=== PATIENT | female | born 1990 | race Caucasian/White ===

== ENCOUNTER → 2016-10-19 | Outpatient (CLI) | payer OTHER ==
--- NOTE | 2016-10-19 08:13 | US ---
EXAMINATION TYPE: US thyroid st tissue head/neck DATE OF EXAM: 10/19/2016 8:01 AM COMPARISON: NONE CLINICAL HISTORY: R22.0 Thyroid Swelling. Pt states feeling lump right side of neck x 3 years GLAND SIZE: Right Lobe: 4.2 x 1.4 x 2.0 cm Overall Parenchyma: homogenous Left Lobe: 4.1 x 1.1 x 1.7 cm Overall Parenchyma: homogeneous Isthmus Thickness: 0.2 cm NODULES RIGHT: # of nodules measured on right: 0 LEFT: # of nodules measured on left: 0 ISTHMUS: # of nodules measured in the isthmus: 0 Bilateral neck scanned, at area of pt's lump right superior neck there appears to be a probable lymph node= 2.23 x 0.5 x 0.5 cm/ Other smaller lymph nodes within neck 4mm and 6mm in size/ Thyroid appear s wnl IMPRESSION: 1. Normal-appearing thyroid gland. 2. Mildly prominent lymph node. Consider CT neck follow-up in the nodule persists.
== END | disposition home or self-care (01) ==
LOC: RADUSWWP 07:35
PROVIDERS: ATTEND Internal Medicine
DX: R22.0 Localized swelling, mass and lump, head (principal)
CPT/HCPCS: 76536

== ENCOUNTER → 2016-10-30 | Outpatient (CLI) | payer OTHER ==
--- NOTE | 2016-10-30 09:23 | CT ---
EXAMINATION TYPE: CT soft tissue neck w con DATE OF EXAM: 10/30/2016 8:42 AM COMPARISON: Correlation ultrasound thyroid 10/19/2016 HISTORY: 26-year-old female with right sided mass on neck TECHNIQUE: Contiguous axial scanning of the neck performed with IV Contrast, patient injected with 10 0 ml mL of Omnipaque 300. Coronal/sagittal reconstructions performed. CT DLP: 686 mGycm Automated exposure control for dose reduction was used. FINDINGS: Mild mucosal thickening bilateral maxillary sinuses with a polyp or mucosal retention cyst along the floor of the left maxillary sinus. Mastoid air cells well pneumatized. Visualized orbits and globes a nd intracranial structures show no gross abnormality. The nasopharynx is clear. There is mild prominence to the palatine tonsils, left greater than right. Additional mild prominence to the lingual tonsils. Oropharynx otherwise clear. The epiglottis and pre vertebral soft tissues are within normal limits. Glottic and subglottic structures as well as the tra cheal column and visualized upper lungs are clear. Bovine configuration to the aortic arch with normal variant direct takeoff of the left vertebral liliana ry directly from the arch. The thyroid gland appears satisfactory. Submandibular glands are satisfactory. Bilateral parotid glan ds appear atrophic. There are a couple prominent right upper cervical, gestation to a lymph nodes measuring up to 1.9 x 0 .8 cm and 1.6 x 0.8 cm, coronal image 66 and 69, respectively. These are not enlarged by CT size criteria. A palpable marker is present along the anterolateral right upper to mid neck. No discrete underlying mass or abnormal fluid collection is seen No osseous destructive process. IMPRESSION: 1. A COUPLE ASYMMETRICALLY PROMINENT RIGHT UPPER CERVICAL LYMPH NODES REMAIN NONENLARGED BY CT SIZE C RITERIA AND MAY CORRESPOND TO THE PALPABLE FINDING. THESE CAN BE FOLLOWED CLINICALLY. IF ANY GROWTH I S NOTED, CONSIDER FOLLOW-UP TARGETED ULTRASOUND. NO SUSPICIOUS NECK MASS SEEN. 2. MILD HYPERTROPHY OF THE PALATINE AND LINGUAL TONSILS. 3. MILD CHRONIC MAXILLARY SINUS DISEASE.
== END | disposition home or self-care (01) ==
LOC: RADCTMAIN 08:08
PROVIDERS: ATTEND Internal Medicine
DX: J35.1 Hypertrophy of tonsils (principal); J32.0 Chronic maxillary sinusitis
CPT/HCPCS: 70491; Q9967

== ENCOUNTER → 2017-02-21 | Outpatient (CLI) | payer OTHER ==
--- NOTE | 2017-02-22 08:51 | US ---
EXAMINATION TYPE: US pelvic complete DATE OF EXAM: 02/21/2017 COMPARISON: NONE CLINICAL HISTORY: R10.1Pelvic Pain, R10.2 Vaginal Pain. TECHNIQUE: Transabdominal (TA) Date of LMP: 01/26/16 EXAM MEASUREMENTS: Uterus: 10.1 x 4.3 x 5.6 cm Endometrial Stripe: 1.3 cm Right Ovary: 2.9 x 1.5 x 1.2 cm Left Ovary: 4.5 x 3.2 x 4.1 cm 1. Uterus: Anteverted wnl 2. Endometrium: wnl 3. Right Ovary: small amount of ff adjacent to right ovary 4. Left Ovary: septated cyst measuring 3.4 x 2.3 x 1.5cm. Lacelike internal echoes are appreciated m ost compatible with a resolving hemorrhagic cyst. Spectral, color and waveform doppler imaging shows good arterial and venous flow within the ovaries ; there is no evidence for ovarian torsion. 5. Bilateral Adnexa: wnl 6. Posterior cul-de-sac: wnl IMPRESSION: 1. Complex left ovarian cyst, most compatible with a resolving hemorrhagic cyst. 2. Scant amount of right periovarian free fluid, which may relate to prior ruptured cyst and is likel y physiologic. 3. Uterus and endometrium are within normal limits for a premenopausal female.
== END | disposition home or self-care (01) ==
LOC: RADUSMAIN 15:37
PROVIDERS: ATTEND Family Medicine
DX: N83.202 Unspecified ovarian cyst, left side (principal)
CPT/HCPCS: 76856

== ENCOUNTER → 2018-06-27 | Outpatient (CLI) | payer OTHER ==
--- NOTE | 2018-06-28 08:47 | CT ---
EXAMINATION TYPE: CT soft tissue neck w con DATE OF EXAM: 06/28/2018 COMPARISON: 10/30/2016 HISTORY: RT side nect mass CT DLP: 724 mGycm CONTRAST: CT scan of the neck is performed with IV Contrast, patient injected with 100 mL of Isovue 300. Contrast enhanced CT of the neck was performed from the skull base through the lung apices. Site of clinical concern right neck is marked the BB marker. At the site of clinical concern there is a 6 mm lymph node identified internal right jugular chain. There is also a an elongated normal-appea ring lymph node adjacent to the right submandibular gland measuring 5.3 mm in short axis. No adenopat hy greater than 1 cm appreciated. AIRWAY: The supraglottic, glottic, and subglottic portions of the airway appear patent and free of mass. SALIVARY GLANDS: The submandibular and parotid glands are free of mass or inflammatory process. THYROID GLAND: No nodules or masses seen. LYMPH NODES: No adenopathy seen greater than 1cm. LUNG APICES: No nodule or mass is seen. OTHER: Vascular structures are patent. No significant degenerative change of the cervical spine. N o abscess seen. IMPRESSION: 1. Subcentimeter lymph nodes at the site of clinical concern. No pathologic adenopathy or mass apprec iated.
== END | disposition home or self-care (01) ==
LOC: RADCTMAIN 15:58
PROVIDERS: ATTEND Otolaryngology Sleep Medicine
DX: R22.1 Localized swelling, mass and lump, neck (principal)
CPT/HCPCS: 70491; Q9967

== ENCOUNTER → 2019-09-18 | Outpatient (CLI) | payer OTHER ==
--- NOTE | 2019-09-18 10:33 | MM ---
Reason for exam: clinical finding. Baseline mammogram. History: Family history of breast cancer in mother at age 45. Took hormonal contraceptives for 1 year beginning at age 19. Physical Findings: Nurse did not find any significant physical abnormalities on exam. [facility] Diagnostic Mammo w CAD ROBERT Bilateral CC and MLO view(s) were taken. Spot compression MLO view(s) were taken of the right breast. ML, CC with magnification, and ML with magnification view(s) were taken of the left breast. The breast tissue is extremely dense which could obscure a lesion on mammography. There are bilateral calcifications. There are five groups on the left and scattered calcifications on the right. On magnification views the medial calcifications appear coarse heterogenous (two groups) and lateral appear punctate and mostly round. As there are bilateral calcifications on baseline, 6 month follow up will be performed. If any groups increase in size or number biopsy marker would be recommended. The previously seen abnormality resolves on additional views and appears as fibroglandular tissue compatible with summation on the right breast. These results were verbally communicated with the patient and result sheet given to the patient on 09/18/19. ASSESSMENT: Probably benign, BI-RAD 3 RECOMMENDATION: Follow-up diagnostic mammogram of both breasts in 6 months.
--- NOTE | 2019-09-18 10:34 | USB ---
Reason for exam: clinical finding. History: Family history of breast cancer in mother at age 45. Took hormonal contraceptives for 1 year beginning at age 19. US Breast LT Technologist: Soraida Willard Left complete breast ultrasound includes all four quadrants, the retroareolar region and axilla. Finding demonstrates a 0.4 x 0.3 x 0.2cm circular, cystic lesion at 2 o'clock and a 0.4 x 0.5 x 0.2cm cystic cluster at 11 o'clock. Dense tissue throughout. Ultrasound findings are benign. These results were verbally communicated with the patient and result sheet given to the patient on 09/18/19. ASSESSMENT: Probably benign, BI-RAD 3 RECOMMENDATION: Follow-up diagnostic mammogram of both breasts in 6 months. (regarding calcifications)
== END | disposition home or self-care (01) ==
LOC: RADMAMWWP 06:57
PROVIDERS: ATTEND Family Medicine
DX: Z12.31 Encounter for screening mammogram for malignant neoplasm of breast (principal); N63.20 Unspecified lump in the left breast, unspecified quadrant
CPT/HCPCS: 77066

== ENCOUNTER → 2023-04-24 | Outpatient (CLI) | payer BC ==
--- NOTE | 2023-04-25 19:09 | MM ---
Reason for Exam: Screening (asymptomatic). Last mammogram was performed 3 year(s) and 7 month(s) ago. Patient History: Menarche at age 12. First Full-Term at age 18. Hormonal Contraceptives for 1 year from age 19 until age 20. Mother had breast cancer, age 45. Last menstrual period: 04/03/2023 Prior Study Comparison: 09/18/2019 Bilateral Diagnostic Mammogram, [facility]. Tissue Density: The breast tissue is heterogeneously dense. This may lower the sensitivity of mammography. Findings: Analyzed By CAD. Unchanged regional punctate calcifications on the left. There is no suspicious group of microcalcifications or new suspicious mass in either breast. Overall Assessment: Benign, BI-RAD 2 Management: Screening Mammogram of both breasts in 1 year. Given patient's family history and dense breast tissue, consideration can be given to supplementary screening with breast ultrasound. Patient should continue monthly self-breast exams. A clinical breast exam by your physician is recommended on an annual basis. This exam should not preclude additional follow-up of suspicious palpable abnormalities. Electronically signed and approved by: Samy Mao M.D. Radiologist
== END | disposition home or self-care (01) ==
LOC: RADMAMWWP 07:39
PROVIDERS: ATTEND Family Medicine
DX: Z12.31 Encounter for screening mammogram for malignant neoplasm of breast (principal); Z80.3 Family history of malignant neoplasm of breast
CPT/HCPCS: 77063; 77067